=== PATIENT | male | born 1960 | race Hispanic/Latino ===

== ENCOUNTER 2018-01-15 10:15 | Emergency (ER) | payer MEDICARE, OTHER ==
[2018-01-15 10:17] VITALS: BMI 40.8
[2018-01-15 10:19] VITALS: RESP 20
--- NOTE | 2018-01-15 10:57 | ED PDOC ---
HPI: Psych/Substance Abuse Time Seen by Provider: 01/15/18 10:26 Chief Complaint (Nursing): Substance Abuse Chief Complaint (Provider): Substance Abuse History Per: Patient, EMS History/Exam Limitations: no limitations Additional History Per: Prior Records Additional Complaint(s): Mr. Rogers is a 57 year old male who was brought in by EMS after finding patient in bed at [facility] with pinpoint pupils and decreased responsiveness. Patient was given Narcan 2 mg at the field and is now alert and oriented. Patient takes opiate chronically prescribed for back pain. Patient wishes to sign AMA. Denies suicidal thoughts. PMD: Akash Hernandez Past Medical History Reviewed: Historical Data, Nursing Documentation, Vital Signs Vital Signs: Last Vital Signs Temp 100.5 F H 01/15/18 10:17 Pulse 86 01/15/18 10:25 Resp 20 01/15/18 10:17 BP 157/94 H 01/15/18 10:25 Pulse Ox 100 01/15/18 10:17 - Medical History PMH: Anxiety, CAD, Depression, GERD, HTN, Hyperlipidemia, Chronic Pain Denies: Diabetes - Surgical History Surgical History: CABG, Coronary Stent (X2) - Family History Family History: States: Unknown Family Hx - Immunization History Hx Tetanus Toxoid Vaccination: No Hx Influenza Vaccination: Yes Hx Pneumococcal Vaccination: No - Home Medications Home Medications: Ambulatory Orders Medication Instructions Recorded Aspirin [Aspir 81] 81 mg PO DAILY 09/03/12 Clopidogrel Hydrogen Sulfate 75 mg PO DAILY 09/03/12 [Plavix] Ranitidine Hydrochloride [Zantac] 150 mg PO DAILY 09/03/12 Rosuvastatin Calcium [Crestor] 10 mg PO DAILY 09/03/12 Imdur 60 mg PO DAILY 08/01/14 Silver Sulfadiazine 1% [Silver 1 appl TP BID 7 Days jar 04/14/15 Sulfadiazine] Sulfamethoxazole/Trimethoprim 1 tab PO BID #14 tab 04/14/15 [Bactrim DS 800 mg-160 mg] Famotidine [Pepcid] 20 mg PO Q12 #20 tab 01/15/18 - Allergies Allergies/Adverse Reactions: Allergies Allergy/AdvReac Type Severity Reaction Status Date / Time FISH Allergy Intermediate SWELLING Verified 01/15/18 10:27 ABRIL Inhibitors Allergy ANGIOEDEMA Verified 01/15/18 10:27 Review of Systems ROS Statement: Except As Marked, All Systems Reviewed And Found Negative Musculoskeletal: Positive for: Back Pain (Chronic) Physical Exam - Reviewed Nursing Documentation Reviewed: Yes Vital Signs Reviewed: Yes - Physical Exam Head Exam: Positive for: ATRAUMATIC, NORMAL INSPECTION, NORMOCEPHALIC Eye Exam: Positive for: Normal appearance (3 mm apart and sluggish) Neurologic/Psych: Positive for: Other (Poor insight otherwise no halluincations or evidence of active withdrawl) - Laboratory Results Result Diagrams: 01/15/18 14:49 01/15/18 14:49 - ECG ECG: Positive for: Viewed By Me ECG Rhythm: Positive for: Sinus Rhythm, ST/T Changes (non-specific) Rate: 78 O2 Sat by Pulse Oximetry: 100 (RA) Pulse Ox Interpretation: Normal Medical Decision Making Medical Decision Making: Monitoring in ED likely opiate overdose. Prior charts reviewed similar visits in 2016. Time: 10:36 Plan: - EKG - Glucose, POC Routine - 1:1 Observation Glucose, POC Routine Reveals 98mg/dL [within range] labs unremarkable, etoh neg WBC normal Lungs remain clear, no cough or distress. Abdomen remained nontender. 305pm awake, ambulating no distress. Somnolence resolved. Wants to be discharged. Vitals normal, afebrile. Scribe Attestation: Documented by Casper Gabriel, acting as a scribe for Gurpreet Avalos III, DO Provider Scribe Attestation: All medical record entries made by the Scribe were at my direction and personally dictated by me. I have reviewed the chart and agree that the record accurately reflects my personal performance of the history, physical exam, medical decision making, and the department course for this patient. I have also personally directed, reviewed, and agree with the discharge instructions and disposition. Disposition - Clinical Impression Clinical Impression: Polysubstance abuse - Patient ED Disposition Is Patient to be Admitted: Transfer of Care Counseled Patient/Family Regarding: Studies Performed, Diagnosis - Disposition Referrals: [facility] [Outside] Disposition: Routine/Home Disposition Time: 14:55 Condition: FAIR Prescriptions: Famotidine [Pepcid] 20 mg PO Q12 #20 tab Instructions: Polysubstance Abuse Forms: [facility] (Pashto) Patient Signed Over To: Zachary Jones
[2018-01-15 11:20] VITALS: PULSE 78
[2018-01-15 12:28] VITALS: BP 129/69; TEMP 98.2
--- NOTE | 2018-01-15 14:44 | CARD ---
APPROVED REPORT EKG Measurement Heart [id number] <Conclusion> Normal sinus rhythm Possible Inferior infarct, age undetermined Cannot rule out Anteroseptal infarct, age undetermined Abnormal ECG
[2018-01-15 14:49] VITALS: O2SAT 100
--- NOTE | 2018-01-15 15:15 | ED PDOC ---
- Laboratory Results Result Diagrams: 01/15/18 14:49 - ECG O2 Sat by Pulse Oximetry: 100 (RA) - Progress Re-evaluation Time: 15:25 Condition: Improved (Awake alert oriented x 3 no focal neuro deficits) Medical Decision Making Medical Decision Making: Patient signed out to me @ 15:[address] Avalos, pending bloodwork/dispo. Scribe Attestation: Documented by Casper Gabriel, acting as a scribe for Zachary Jones MD Provider Scribe Attestation: All medical record entries made by the Scribe were at my direction and personally dictated by me. I have reviewed the chart and agree that the record accurately reflects my personal performance of the history, physical exam, medical decision making, and the department course for this patient. I have also personally directed, reviewed, and agree with the discharge instructions and disposition. Disposition - Clinical Impression Clinical Impression: Polysubstance abuse - POA Present On Arrival: None - Disposition Referrals: [facility] [Outside] Disposition: Routine/Home Disposition Time: 15:25 Condition: FAIR Instructions: Polysubstance Abuse Forms: [employer] [facility] (Swedish)
[2018-01-15 15:19] LABS: BASO % 0.4 % (0.0-2.0); EOS # 0.2 K/uL (0.0-0.7); EOS % 2.2 % (0.0-4.0); HEMOGLOBIN 14.4 g/dL (12.0-18.0); LYMPH # 2.2 K/uL (1.0-4.3); LYMPH % 24.9 % (20.0-40.0); MEAN CELL VOLUME 91.2 fl (80.0-94.0); MEAN CORPUSCULAR HEMOGLOBIN 31.1 pg (27.0-31.0); MEAN CORPUSCULAR HGB CONC 34.2 g/dL (33.0-37.0); MONO % 11.1 % (0.0-10.0); NEUT # 5.3 K/uL (1.8-7.0); NEUT % 61.4 % (50.0-75.0); NRBC % 0.4 % (0.0-0.0); RBC 4.61 Mil/uL (4.40-5.90); RED CELL DISTRIBUTION WIDTH 14.1 % (11.5-14.5); WHITE BLOOD COUNT 8.7 K/uL (4.8-10.8)
[2018-01-15 15:26] LABS: ALB/GLOB RATIO 1.1 (1.0-2.1); ALBUMIN 4.1 g/dL (3.5-5.0); ALT/SGPT 50 U/L (21-72); AST/SGOT 43 U/L (17-59); BLOOD UREA NITROGEN 25 mg/dl (9-20); CALCIUM 9.6 mg/dL (8.4-10.2); GFR AFRICAN-AMERICAN > 60; GFR NON-AFRICAN AMERICAN > 60
== END 2018-01-15 15:41 | disposition home or self-care (01) ==
LOC: H.ER 10:15
DX: F19.10 Other psychoactive substance abuse, uncomplicated (principal); E78.5 Hyperlipidemia, unspecified; F32.9 Major depressive disorder, single episode, unspecified; F41.9 Anxiety disorder, unspecified; G89.29 Other chronic pain; I10 Essential (primary) hypertension; I25.10 Atherosclerotic heart disease of native coronary artery without angina pectoris; Z79.82 Long term (current) use of aspirin; Z95.1 Presence of aortocoronary bypass graft; Z95.5 Presence of coronary angioplasty implant and graft; K21.9 Gastro-esophageal reflux disease without esophagitis
CPT/HCPCS: 80053; 82948; 85025; 93005; 99284; G0480

== ENCOUNTER 2018-08-13 11:15 | Emergency (ER) | payer OTHER ==
[2018-08-13 11:16] VITALS: BMI 40.8
[2018-08-13 11:51] VITALS: BP 131/85; PULSE 75; RESP 18; TEMP 98.3; O2SAT 98
[2018-08-13] MEDS ORDERED: Silver Sulfadiazine 1% CREAM (50 gm) TOP STA (12:41)
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
[2018-08-13] MEDS ORDERED: Silver Sulfadiazine 1% Cream (20 gm) TOP STA (13:21)
== END 2018-08-13 13:57 | disposition home or self-care (01) ==
LOC: H.ER 11:15
DX: L03.115 Cellulitis of right lower limb (principal)

== ENCOUNTER 2018-11-25 23:22 | Emergency (ER) | payer OTHER ==
[2018-11-25 23:22] VITALS: BMI 40.8
--- NOTE | 2018-11-25 23:51 | ED PDOC ---
HPI: Altered Mental Status Time Seen by Provider: 11/25/18 23:40 Chief Complaint (Nursing): Altered Mental Status Chief Complaint (Provider): Altered Mental Status History Per: Patient History/Exam Limitations: None Current Symptoms Are (Timing): Still Present Additional Complaint(s): Ken Heck is a 57 year old male with a past medical history of HTN, HLD, CAD and anxiety, who presents to the emergency department after being brought in by EMS for altered mental status after being found at [facility]. Patient admits to taking multiple drugs before presenting to the ED, including plavix, zanax, percocet and blood pressure medication. He denies having any alcohol. When asked about the scars and alejandre on this lower legs, patient states that he was applying silver sulfadiazine. Patient states that he wishes to call his because she has his Mastercard. He further denies having any pain, homicidal ideation, suicidal ideation or any other medical complaints. PMD: David Bustos Past Medical History Reviewed: Historical Data, Nursing Documentation, Vital Signs Vital Signs: Last Vital Signs Temp 100.4 F H 11/25/18 23:25 Pulse 103 H 11/25/18 23:25 Resp BP 176/78 H 11/25/18 23:25 Pulse Ox 98 11/25/18 23:25 - Medical History PMH: Anxiety, Back Problems (chronic), CAD, Depression, GERD, HTN, Hyperlipidemia, Chronic Pain Denies: Diabetes - Surgical History Surgical History: CABG, Coronary Stent (X2) - Family History Family History: States: Unknown Family Hx - Social History Alcohol: None Drugs: Opiates - Immunization History Hx Tetanus Toxoid Vaccination: No Hx Influenza Vaccination: Yes Hx Pneumococcal Vaccination: No - Home Medications Home Medications: Ambulatory Orders Medication Instructions Recorded Aspirin [Aspir 81] 81 mg PO DAILY 09/03/12 Clopidogrel Hydrogen Sulfate 75 mg PO DAILY 09/03/12 [Plavix] Ranitidine Hydrochloride [Zantac] 150 mg PO DAILY 09/03/12 Rosuvastatin Calcium [Crestor] 10 mg PO DAILY 09/03/12 Imdur 60 mg PO DAILY 08/01/14 Silver Sulfadiazine 1% [Silver 1 appl TP BID 7 Days jar 04/14/15 Sulfadiazine] Sulfamethoxazole/Trimethoprim 1 tab PO BID #14 tab 04/14/15 [Bactrim DS 800 mg-160 mg] Famotidine [Pepcid] 20 mg PO Q12 #20 tab 01/15/18 RX: Clindamycin [Cleocin] 300 mg PO QID #40 cap 08/13/18 Silver Sulfadiazine 1% 20 gm 1 ea TOP BID #2 tube 08/13/18 [Silvadene] - Allergies Allergies/Adverse Reactions: Allergies Allergy/AdvReac Type Severity Reaction Status Date / Time FISH Allergy Intermediate SWELLING Verified 08/13/18 11:51 ABRIL Inhibitors Allergy ANGIOEDEMA Verified 08/13/18 11:51 Review of Systems ROS Statement: Except As Marked, All Systems Reviewed And Found Negative Constitutional: Negative for: Other (pain) Neurological: Positive for: Altered Mental Status Psych: Negative for: Suicidal ideation (HI) Physical Exam - Reviewed Nursing Documentation Reviewed: Yes Vital Signs Reviewed: Yes - Physical Exam Appears: Positive for: Non-toxic, No Acute Distress (obese; disheveled ) Head Exam: Positive for: ATRAUMATIC, NORMOCEPHALIC Skin: Positive for: Normal Color Eye Exam: Negative for: PERRL (pinpoint pupils ) Respiratory: Negative for: Respiratory Distress Extremity: Positive for: Other (x3 healing ulcers to the medial right calf; dry blood and abrasions to the left calf ) Neurologic/Psych: Positive for: Alert, Oriented, Other (slurred speech; slow to respond ) - Laboratory Results Result Diagrams: 11/25/18 23:49 11/25/18 23:49 - ECG O2 Sat by Pulse Oximetry: 98 (RA) Pulse Ox Interpretation: Normal Medical Decision Making Medical Decision Making: Time: 234 A/P: Work up will include basic labs to confirm source of altered mental status. Patient will most likely be discharged home when sober. -- EKG -- Alcohol serum -- BMP -- Urine drug screen -- CBC with differential Time: 12 EKG shows normal sinus rhythm with prolonged Qtc. Will give magnesium. Time: 440 Patient was informed of kidney failure. Patient states that he has not had any kidney problems in the past. When asked about staying the hospital, patient states he wants to go home against medical advise. Patient is alert and oriented x3, calm and cooperative with no signs of intoxication. Patient states he will follow up with PMD on Tuesday. Leaving Against Medical Advice (AMA): This patient is choosing to leave against medical advice. The EP has personally explained to the pt that choosing to do so may result in permanent bodily harm or . The EP discussed at great length that without further evaluation and monitoring there may be unforeseen circumstances and/or deterioration causing permanent bodily harm or as a result of their choice. The pt verbalized these risks back to the physician in laymans terms. The pt is alert, oriented, and shows the mental capacity to make clear decisions regarding the pts health care at this time. The pt continues to wish to leave against medical advice. In light of the pts decision to leave AMA, follow-up has been arranged and the pt is aware of the importance of following up as instructed. The pt has been advised that they should return to the ED immediately if they change their mind at any time, or if their condition begins to change or worsen in any way. ----- Scribe Attestation: Documented by Jeffery Tristan, acting as a scribe for Digna Mancini MD. Provider Scribe Attestation: All medical record entries made by the Scribe were at my direction and personally dictated by me. I have reviewed the chart and agree that the record accurately reflects my personal performance of the history, physical exam, medical decision making, and the department course for this patient. I have also personally directed, reviewed, and agree with the discharge instructions and disposition. Disposition - Clinical Impression Clinical Impression: Altered mental status, Drug abuse, Acute kidney injury - Disposition Referrals: Zachary Paz MD [Medical Doctor] - Disposition Time: 04:41 Condition: STABLE Additional Instructions: Follow up with primary medical doctor to discuss new onset kidney failure. Follow up with fast food supervisor as referred. Return to the emergency department if you develop trouble breathing, chest pain, or other new symptoms. Instructions: Altered Mental Status (DC), Acute Kidney Failure (DC), Drug Abuse and Drug Addiction (DC), Prescription Drug Misuse Forms: [facility] (Brazilian) Print Language: JAPANESE
[2018-11-26 00:18] LABS: BASO % 0.4 % (0.0-2.0); EOS # 0.3 K/uL (0.0-0.7); EOS % 3.5 % (0.0-4.0); HEMOGLOBIN 11.6 g/dL (12.0-18.0); LYMPH # 1.5 K/uL (1.0-4.3); MEAN CELL VOLUME 89.5 fl (80.0-94.0); MEAN CORPUSCULAR HEMOGLOBIN 29.9 pg (27.0-31.0); MEAN CORPUSCULAR HGB CONC 33.4 g/dL (33.0-37.0); MEAN PLATELET VOLUME 7.2 fl (7.2-11.7); MONO # 0.8 K/uL (0.0-0.8); MONO % 10.7 % (0.0-10.0); NEUT # 4.7 K/uL (1.8-7.0); NEUT % 64.4 % (50.0-75.0); RBC 3.89 Mil/uL (4.40-5.90); RED CELL DISTRIBUTION WIDTH 14.4 % (11.5-14.5); WHITE BLOOD COUNT 7.4 K/uL (4.8-10.8)
[2018-11-26 00:27] LABS: BLOOD UREA NITROGEN 39 mg/dl (9-20); CALCIUM 8.8 mg/dL (8.4-10.2); GFR NON-AFRICAN AMERICAN 45
[2018-11-26 04:46] VITALS: BP 134/59; PULSE 75; RESP 16; TEMP 99
[2018-11-26 04:56] VITALS: O2SAT 98
[2018-11-26 06:34] LABS: BARBITURATES, UR NEGATIVE (NEGATIVE); BENZODIAZEPINES, UR POSITIVE (NEGATIVE); OPIATES, UR POSITIVE (NEGATIVE); PHENCYCLIDINE, UR NEGATIVE (NEGATIVE)
--- NOTE | 2018-11-26 16:54 | CARD ---
APPROVED REPORT Date of service: 11/26/2018 EKG Measurement Heart [id number] <Conclusion> Normal sinus rhythm Possible Inferior infarct, age undetermined Anteroseptal infarct, age undetermined Abnormal ECG
== END 2018-11-26 05:04 | disposition left against medical advice (07) ==
LOC: H.ER 23:22
DX: R41.82 Altered mental status, unspecified (principal); F19.10 Other psychoactive substance abuse, uncomplicated; S37.009A Unspecified injury of unspecified kidney, initial encounter; X58.XXXA Exposure to other specified factors, initial encounter; Y92.89 Other specified places as the place of occurrence of the external cause; E78.5 Hyperlipidemia, unspecified; F32.9 Major depressive disorder, single episode, unspecified; F41.9 Anxiety disorder, unspecified; G89.29 Other chronic pain; I10 Essential (primary) hypertension; I25.10 Atherosclerotic heart disease of native coronary artery without angina pectoris; K21.9 Gastro-esophageal reflux disease without esophagitis; N17.9 Acute kidney failure, unspecified; Z79.02 Long term (current) use of antithrombotics/antiplatelets; Z79.82 Long term (current) use of aspirin; Z95.1 Presence of aortocoronary bypass graft; Z95.5 Presence of coronary angioplasty implant and graft
CPT/HCPCS: 80048; 82948; 83735; 85025; 93005; 99285; G0480